=== PATIENT | male | born 1980 | race Caucasian/White ===

== ENCOUNTER 2017-07-10 21:44 | Emergency (ER) | payer OTHER ==
[2017-07-10 22:15] VITALS: BP 143/89
--- NOTE | 2017-07-10 22:53 | RADIOLOGY REPORT (SQ) ---
EXAM DESCRIPTION: SHOULDER RIGHT 2 OR MORE VIEWS COMPLETED DATE/TIME: 07/10/2017 10:45 pm REASON FOR STUDY: pain, decreased ROM COMPARISON: None. NUMBER OF VIEWS: Three views. TECHNIQUE: Internal rotation, external rotation, and Y view images acquired of the right shoulder. LIMITATIONS: None. FINDINGS: MINERALIZATION: Normal. BONES: No acute fracture or dislocation. No worrisome bone lesions. JOINTS: No dislocation. VISUALIZED LUNGS AND RIBS: No pneumothorax. No rib fracture. SOFT TISSUES: No radiopaque foreign body. OTHER: No other significant finding. IMPRESSION: NEGATIVE STUDY OF THE RIGHT SHOULDER. NO RADIOGRAPHIC EVIDENCE OF ACUTE INJURY. TECHNICAL DOCUMENTATION: JOB ID: [id number] [employer]- All Rights Reserved
[2017-07-10] MEDS ORDERED: NAPROXEN 250 MG TABLET PO ONE (23:00)
--- NOTE | 2017-07-10 23:04 | ER Document Report ---
ED Extremity Problem, Upper - General Chief Complaint: Shoulder Injury Stated Complaint: SHOULDER PAIN Time Seen by Provider: 07/10/17 22:51 Notes: Patient is a 36-year-old male who comes emergency department for chief complaint of right shoulder injury. He states he was getting up out of a chair and pushing himself out when he felt a pain in his right shoulder. He states he is worried he dislocated it. He denies numbness to the arm, neck pain, or any other areas of pain. He denies any other injuries. TRAVEL OUTSIDE OF THE [place] IN LAST 30 DAYS: No - Related Data Allergies/Adverse Reactions: No Known Allergies Allergy (Verified 07/10/17 22:10) Past Medical History - General Information source: Patient - Social History Smoking Status: Never Smoker Drug Abuse: None Lives with: Family Family History: Reviewed & Not Pertinent - Past Medical History Cardiac Medical History: Reports: Hx Hypercholesterolemia, Hx Hypertension Pulmonary Medical History: Reports: Hx Asthma Renal/ Medical History: Denies: Hx Peritoneal Dialysis GI Medical History: Reports: Hx Gastroesophageal Reflux Disease Musculoskeltal Medical History: Reports Hx Arthritis Psychiatric Medical History: Reports: Hx Anxiety - Immunizations Hx Diphtheria, Pertussis, Tetanus Vaccination: No Review of Systems - Review of Systems Constitutional: No symptoms reported EENT: No symptoms reported Cardiovascular: No symptoms reported Respiratory: No symptoms reported Gastrointestinal: No symptoms reported Genitourinary: No symptoms reported Male Genitourinary: No symptoms reported Musculoskeletal: See HPI Skin: No symptoms reported Hematologic/Lymphatic: No symptoms reported Neurological/Psychological: No symptoms reported Physical Exam - Vital signs Vitals: Temp Pulse Resp BP Pulse Ox 97.8 F 90 20 143/89 H 98 07/10/17 22:10 07/10/17 22:10 07/10/17 22:10 07/10/17 22:10 07/10/17 22:10 Interpretation: Normal - General General appearance: Appears well, Alert In distress: None - HEENT Head: Normocephalic, Atraumatic Eyes: Normal Conjunctiva: Normal Extraocular movements intact: Yes Eyelashes: Normal Pupils: PERRL Nasal: Normal Mouth/Lips: Normal Mucous membranes: Normal Pharynx: Normal Neck: Normal - Respiratory Respiratory status: No respiratory distress Chest status: Nontender Breath sounds: Normal Chest palpation: Normal - Cardiovascular Rhythm: Regular. No: Tachycardia Heart sounds: Normal auscultation, S1 appreciated, S2 appreciated Murmur: No - Abdominal Inspection: Normal Distension: No distension Bowel sounds: Normal Tenderness: Nontender. No: Tender Organomegaly: No organomegaly - Back Back: Normal, Nontender - Extremities General upper extremity: Other - Positive empty can test, tenderness over the teres minor and internal posterior shoulder. No evidence of dislocation. Painful range of motion but range of motion is still intact. Normal distal neurovascular exam. General lower extremity: Normal inspection, Nontender, Normal color, Normal ROM , Normal temperature, Normal weight bearing. No: Radha's sign - Neurological Neuro grossly intact: Yes Cognition: Normal Orientation: AAOx4 [place] Coma Scale Eye Opening: Spontaneous Vic Coma Scale Verbal: Oriented [place] Coma Scale Motor: Obeys Commands Vic Coma Scale Total: 15 Speech: Normal Motor strength normal: LUE, RUE, LLE, RLE Sensory: Normal - Psychological Associated symptoms: Normal affect, Normal mood - Skin Skin Temperature: Warm Skin Moisture: Dry Skin Color: Normal Course - Re-evaluation Re-evalutation: X-ray reviewed and is unremarkable. Examination is consistent with rotator cuff injury. Patient will begin treatment for this, discussed recommendation, he already has a sling at home, discussed orthopedic follow-up if symptoms continue, discussed return precautions, patient states understanding and agreement. - Vital Signs Vital signs: Temp Pulse Resp BP Pulse Ox 97.8 F 90 20 143/89 H 98 07/10/17 22:10 07/10/17 22:10 07/10/17 22:10 07/10/17 22:10 07/10/17 22:10 Discharge - Discharge Clinical Impression: Right shoulder injury Qualifiers: Encounter type: initial encounter Qualified Code(s): S49.91XA - Unspecified injury of right shoulder and upper arm, initial encounter Condition: Stable Disposition: HOME, SELF-CARE Additional Instructions: X-ray imaging is normal. Your examination indicates rotator cuff injury. Ice 3-4 times a day for 15-20 minutes, take naproxen as prescribed, take the valium as a muscle relaxer (can sedate, cannot drive on this medication). Wear your sling for comfort at home but also remember to take your arm out frequently to perform range of motion to avoid a frozen shoulder. If symptoms continue please follow-up with orthopedics for additional management. Return to emergency department for any concerning or worsening symptoms. Prescriptions: Diazepam [Valium 5 mg Tablet] 1 - 2 tab PO TID #15 tablet Naproxen 500 mg PO BID #20 tablet Referrals: ZIYAD SANCHEZ DO [ACTIVE STAFF] - Follow up as needed
== END 2017-07-10 23:10 | disposition home or self-care (01) ==
LOC: ER 21:44
DX: S49.91XA Unspecified injury of right shoulder and upper arm, initial encounter (principal); X58.XXXA Exposure to other specified factors, initial encounter; I10 Essential (primary) hypertension; J45.909 Unspecified asthma, uncomplicated
CPT/HCPCS: 99283

== ENCOUNTER 2017-11-19 09:22 | Emergency (ER) | payer OTHER ==
[2017-11-19] MEDS ORDERED: ONDANSETRON HCL INJ/PF 4 MG/2 ML SDV IV ONE (10:17)
[2017-11-19] MEDS ORDERED: KETOROLAC TROMETHAMINE INJ/PF 30 MG/1 ML SDV IV ONE (10:17)
--- NOTE | 2017-11-19 10:31 | ER Document Report ---
ED Respiratory Problem - General Chief Complaint: Chest Congestion Stated Complaint: COUGH/CONGESTION Time Seen by Provider: 11/19/17 09:41 Mode of Arrival: Ambulatory Information source: Patient Notes: 36-year-old male presents to ED for cough congestion's sore throat nausea vomiting and fever. He states he got sick on Sunday and has been getting worse since then. He states he is coughing so hard he is keeping him awake. TRAVEL OUTSIDE OF THE [place] IN LAST 30 DAYS: No - HPI Patient complains to provider of: Cough, Short of breath, Other - Fever nausea and vomiting Onset: Other - Sunday Duration: Worse/persistent Initiating Event: URI Quality of pain: Achy Severity: Moderate Pain Level: 4 Short of Breath: Mild Cough: Productive Sputum amount: Moderate Sputum color: White Associated symptoms: Chills, Congestion, Cough, Fever, PND, Runny nose, Sinus pain/pressure, Other - Nausea and vomiting Similar symptoms previously: No Recently seen / treated by doctor: No - Related Data Allergies/Adverse Reactions: No Known Allergies Allergy (Verified 11/19/17 13:00) Past Medical History - General Information source: Patient - Social History Smoking Status: Never Smoker Cigarette use (# per day): No Chew tobacco use (# tins/day): No Smoking Education Provided: No Frequency of alcohol use: Occasional Drug Abuse: None Occupation: clinical rehab specialist Lives with: Family Family History: Reviewed & Not Pertinent Patient has suicidal ideation: No Patient has homicidal ideation: No - Past Medical History Cardiac Medical History: Reports: Hx Hypercholesterolemia, Hx Hypertension Pulmonary Medical History: Reports: Hx Asthma, Hx Pneumonia EENT Medical History: Reports: None Neurological Medical History: Reports: None Endocrine Medical History: Reports: None Renal/ Medical History: Reports: None Malignancy Medical History: Reports None GI Medical History: Reports: Hx Gastroesophageal Reflux Disease Musculoskeltal Medical History: Reports Hx Arthritis Psychiatric Medical History: Reports: Hx Anxiety, Hx Depression Traumatic Medical History: Reports: None Infectious Medical History: Reports: None Surgical Hx: Negative Past Surgical History: Reports: None - Immunizations Hx Diphtheria, Pertussis, Tetanus Vaccination: No History of Influenza Vaccine for 08/2017 - 01/2018 Season: Yes Review of Systems - Review of Systems Constitutional: Chills, Fever, Recent illness EENT: Nose discharge, Sinus discharge, Throat pain Cardiovascular: No symptoms reported Respiratory: Cough, Short of breath, Sputum Gastrointestinal: Nausea, Vomiting Genitourinary: No symptoms reported Male Genitourinary: No symptoms reported Musculoskeletal: Muscle pain Skin: No symptoms reported Hematologic/Lymphatic: No symptoms reported Neurological/Psychological: No symptoms reported -: Yes All other systems reviewed and negative Physical Exam - Vital signs Vitals: Temp Pulse Resp BP Pulse Ox 101.0 F H 131 H 22 H 139/83 H 96 11/19/17 09:26 11/19/17 09:26 11/19/17 09:26 11/19/17 09:26 11/19/17 09:26 Interpretation: Normal - General General appearance: Appears well, Alert - HEENT Head: Normocephalic, Atraumatic Eyes: Normal Pupils: PERRL Ears: Normal External canal: Normal Tympanic membrane: Normal Sinus: Normal Nasal: Purulent discharge, Swelling Mouth/Lips: Normal Mucous membranes: Normal Pharynx: Post nasal drainage. No: Erythema, Exudate, Peritonsillar abscess, Retropharyngeal abscess, Tonsillar hypertrophy, Uvular edema, Potential airway comprom. Neck: Normal - Respiratory Respiratory status: No respiratory distress Chest status: Nontender Breath sounds: Productive cough. No: Rales, Rhonchi, Stridor, Wheezing Chest palpation: Normal - Cardiovascular Rhythm: Regular Heart sounds: Normal auscultation Murmur: No - Abdominal Inspection: Normal Distension: No distension Bowel sounds: Normal Tenderness: Nontender Organomegaly: No organomegaly - Back Back: Normal, Nontender - Extremities General upper extremity: Normal inspection, Nontender, Normal color, Normal ROM , Normal temperature General lower extremity: Normal inspection, Nontender, Normal color, Normal ROM , Normal temperature, Normal weight bearing. No: Radha's sign - Neurological Neuro grossly intact: Yes Cognition: Normal Orientation: AAOx4 [place] Coma Scale Eye Opening: Spontaneous [place] Coma Scale Verbal: Oriented [place] Coma Scale Motor: Obeys Commands Vic Coma Scale Total: 15 Speech: Normal Motor strength normal: LUE, RUE, LLE, RLE Sensory: Normal - Psychological Associated symptoms: Normal affect, Normal mood - Skin Skin Temperature: Warm Skin Moisture: Dry Skin Color: Normal Course - Re-evaluation Re-evalutation: 11/19/17 22:28 Patient was given 2 L of fluids was Toradol and Zofran. After his labs were all completed patient stated he felt much better. He was discharged home with prescription for Zofran and instructed to please takes the next 3 days off and recuperate. With his primary doctor - Vital Signs Vital signs: Temp Pulse Resp BP Pulse Ox 98.1 F 113 H 22 H 127/72 H 95 11/19/17 12:41 11/19/17 12:41 11/19/17 12:41 11/19/17 12:41 11/19/17 12:41 - Laboratory Result Diagrams: 11/19/17 10:40 11/19/17 10:40 Laboratory results interpreted by me: 11/19/17 11/19/17 11/19/17 10:40 10:40 10:40 Seg Neutrophils % 80.2 H Lymphocytes % 8.9 L VBG pH 7.43 H Glucose 139 H Total Bilirubin 1.5 H Urine Protein Urine Blood 11/19/17 10:40 Seg Neutrophils % Lymphocytes % VBG pH Glucose Total Bilirubin Urine Protein 30 H Urine Blood SMALL H - Diagnostic Test Radiology reviewed: Image reviewed, Reports reviewed - EKG Interpretation by Me When compared to previous EKG there are: No significant change Discharge - Discharge Clinical Impression: Viral respiratory illness Nausea and vomiting Qualifiers: Vomiting type: unspecified Vomiting Intractability: non-intractable Qualified Code(s): R11.2 - Nausea with vomiting, unspecified Condition: Stable Disposition: HOME, SELF-CARE Instructions: Family Physicians / Practices Additional Instructions: UPPER RESPIRATORY ILLNESS: You have a viral infection of the respiratory passages -- a "cold." This common infection causes nasal congestion, drainage, and often sore throat and cough. It is highly contagious. The disease usually lasts about 10 to 14 days. There is no "cure" for the viral infection -- it must run its course. If there is a complication, such as bacterial infection in the nose, sinuses, middle ear, or bronchial tubes, antibiotics may be required. The antibiotics won't affect the virus. Drink plenty of fluids. A humidifier may help. An expectorant medication or decongestant may make you more comfortable. Use acetaminophen or ibuprofen for fever or aches. See the doctor if fever persists over two days, if there is any significant worsening of your symptoms, or if you simply fail to improve as expected. Viral Syndrome The physician has diagnosed a viral infection. Viruses not only cause "colds," but can cause many different symptoms including generalized aching, fever, headache, cough, diarrhea, nausea, vomiting, and fatigue. The treatment, for the most part, is simply relief of symptoms. This means that antibiotics are usually not given. Rest, fluids, pain medications and, occasionally, medication for the specific symptoms that are most bothersome will be prescribed. Use good handwashing to avoid passing the virus to others. Shared toys should be cleaned with disinfectant. Clean the toilets, sinks, and counter surfaces in bathrooms. Launder clothing in hot water. Contact the physician if you develop any new or unusual symptoms such as severe headache, stiff neck, high fever, chest pain, productive cough, or shortness of breath. You should be rechecked if you don't see marked improvement within seven to 10 days. COUGH-SUPPRESSANT & EXPECTORANT MEDICATION: You are to use a cough medication as needed for relief of symptoms. This medicine is a combination of an expectorant (to make the mucous thinner and more easily "coughed up") and a cough suppressant (to reduce the frequency of coughing). The cough-suppressant medicine is related to narcotics. You may experience mild nausea and sleepiness. Some patients who are very sensitive to narcotics may have stomach pain from this medicine. Taking the medicine with food reduces these side effects. Do not drive or work with machinery until you know how this medicine affects you. The expectorant should have no side effects. Iodine-containing expectorants (such as organidin) should not be taken by persons with active thyroid disease unless approved by your doctor. Call the doctor if you develop shortness of breath, hives, rash, itching, lightheadedness, or severe nausea and vomiting. USE OF ACETAMINOPHEN (Tylenol): Acetaminophen may be taken for pain relief or fever control. It's much safer than aspirin, offering a wider range of "safe" dosages. It is safe during . Some brand names are Tylenol, Panadol, Datril, Anacin 3, Tempra, and Liquiprin. Acetaminophen can be repeated every four hours. The following are maximum recommended dosages: >89 pounds or adults 650 mg to 900 mg Acetaminophen can be repeated every four hours. Maximum dose not to exceed 4000 mg a day. FOLLOW-UP CARE: If you have been referred to a physician for follow-up care, call the physician s office for an appointment as you were instructed or within the next two days. If you experience worsening or a significant change in your symptoms, notify the physician immediately or return to the Emergency Department at any time for re-evaluation. Prescriptions: Ondansetron [Zofran Odt 4 mg Tablet] 1 tab PO Q6H #15 tab.rapdis Forms: Return to Work
[2017-11-19] MEDS: NORMAL SALINE 1000 ML 1,000 ML IV PRN ×2 (10:45→10:47)
[2017-11-19 11:04] LABS: ABSOLUTE BASOPHILS # (AUTO) 0.1 10^3/uL (0.0-0.2); ABSOLUTE LYMPHOCYTES (AUTO) 0.7 10^3/uL (0.5-4.7); ABSOLUTE MONOCYTES (AUTO) 0.7 10^3/uL (0.1-1.4); ABSOLUTE NEUT (AUTO) 6.2 10^3/uL (1.7-8.2); BASOPHILS % (AUTO) 0.7 % (0-2); EOSINOPHILS % (AUTO) 0.6 % (0-6); HEMATOCRIT 45.2 % (37.9-51.0); HEMOGLOBIN 15.9 g/dL (13.5-17.0); LYMPHOCYTES % (AUTO) 8.9 % (13-45); MEAN CORPUSCULAR HEMOGLOBIN 30.2 pg (27.0-33.4); MEAN CORPUSCULAR HGB CONC 35.1 g/dL (32.0-36.0); MEAN CORPUSCULAR VOLUME 86 fl (80-97); MONOCYTES % (AUTO) 9.6 % (3-13); PLATELET COUNT 190 10^3/uL (150-450); RED BLOOD COUNT 5.25 10^6/uL (4.35-5.55); RED CELL DISTRIBUTION WIDTH 12.8 % (11.5-14.0); SEGMENTED NEUTROPHILS % (AUTO) 80.2 % (42-78); TOTAL CELLS COUNTED % (AUTO) 100 %; WHITE BLOOD COUNT 7.7 10^3/uL (4.0-10.5)
[2017-11-19 11:05] LABS: VENOUS BLOOD BASE EXCESS 1.4 mmol/L; VENOUS BLOOD HCO3 25.8 mmol/L (20-32); VENOUS BLOOD PCO2 39.9 mmHg (35-63); VENOUS BLOOD PH 7.43 (7.30-7.42)
--- NOTE | 2017-11-19 11:10 | RADIOLOGY REPORT (SQ) ---
EXAM DESCRIPTION: CHEST PA/LAT COMPLETED DATE/TIME: 11/19/2017 10:52 am REASON FOR STUDY: cough congestion fever COMPARISON: 09/14/2016 EXAM PARAMETERS: NUMBER OF VIEWS: two views TECHNIQUE: Digital Frontal and Lateral radiographic views of the chest acquired. RADIATION DOSE: NA LIMITATIONS: none FINDINGS: LUNGS AND PLEURA: No new opacities, masses or pneumothorax. No pleural effusion. MEDIASTINUM AND HILAR STRUCTURES: No masses or contour abnormalities. HEART AND VASCULAR STRUCTURES: Heart stable in size. No evidence for failure. BONES: No acute findings. HARDWARE: None in the chest. OTHER: No other significant finding. IMPRESSION: NO ACUTE CARDIOPULMONARY PROCESS. NO SIGNIFICANT CHANGE FROM PRIOR STUDY. TECHNICAL DOCUMENTATION: JOB ID: [id number] [employer]- All Rights Reserved
[2017-11-19 11:18] LABS: APPEARANCE,URINE CLEAR; BILIRUBIN,URINE NEGATIVE (NEGATIVE); COLOR,URINE YELLOW; GLUCOSE, URINE NEGATIVE (NEGATIVE); KETONES,URINE NEGATIVE (NEGATIVE); LEUKOCYTE ESTERASE,URINE NEGATIVE (NEGATIVE); NITRITE,URINE NEGATIVE (NEGATIVE); PROTEIN,URINE 30 mg/dL (NEGATIVE); URINE SPECIFIC GRAVITY 1.018; UROBILINOGEN,URINE NEGATIVE mg/dL (<2.0)
[2017-11-19 11:19] LABS: ALANINE AMINOTRANSFERASE 55 U/L (21-72); ALBUMIN 4.4 g/dL (3.5-5.0); ALKALINE PHOSPHATASE 60 U/L (38-126); ANION GAP 12 (5-19); ASPARTATE AMINO TRANSFERASE 35 U/L (17-59); BILIRUBIN,DIRECT 0.4 mg/dL (0.0-0.4); BILIRUBIN,TOTAL 1.5 mg/dL (0.2-1.3); BLOOD UREA NITROGEN 12 mg/dL (7-20); CALCIUM 9.2 mg/dL (8.4-10.2); CARBON DIOXIDE 26 mmol/L (22-30); CHLORIDE 99 mmol/L (98-107); GLUCOSE 139 mg/dL (75-110); POTASSIUM 4.2 mmol/L (3.6-5.0); SODIUM 137.4 mmol/L (137-145); TOTAL PROTEIN 7.2 g/dL (6.3-8.2)
[2017-11-19 11:44] LABS: A TYPE INFLUENZA AG NEGATIVE (NEGATIVE); B INFLUENZA AG NEGATIVE (NEGATIVE)
[2017-11-19 12:42] VITALS: BP 127/72
--- NOTE | 2017-11-20 09:31 | EKG REPORT ---
SEVERITY:- BORDERLINE ECG - SINUS TACHYCARDIA BORDERLINE T ABNORMALITIES, INFERIOR LEADS : Confirmed by: Adarsh Fernandez 20-Nov-2017 09:30:13
== END 2017-11-19 13:14 | disposition home or self-care (01) ==
LOC: ER 09:22
DX: J02.8 Acute pharyngitis due to other specified organisms (principal); B97.89 Other viral agents as the cause of diseases classified elsewhere; J45.909 Unspecified asthma, uncomplicated; R11.2 Nausea with vomiting, unspecified; R05 Cough; R06.02 Shortness of breath; R50.9 Fever, unspecified; R09.82 Postnasal drip; J34.89 Other specified disorders of nose and nasal sinuses; M79.1 Myalgia; I10 Essential (primary) hypertension; Z87.01 Personal history of pneumonia (recurrent); Z87.19 Personal history of other diseases of the digestive system
CPT/HCPCS: 93005; 99284; 96361; 96374; 96375; 36415; 87040; 85025; 80053; 81001; 82803; 83605; 87804; 71046; 93010; J1885; J2405; J7030

== ENCOUNTER 2017-12-27 02:43 | Emergency (ER) | payer OTHER ==
--- NOTE | 2017-12-27 04:56 | RADIOLOGY REPORT (SQ) ---
EXAM DESCRIPTION: FOOT LEFT COMPLETE CLINICAL HISTORY: swelling COMPARISON: None. FINDINGS: 3 views of the left foot. No acute fracture or dislocation. Normal osseous mineralization. The tarsals and metatarsals appear appropriately aligned. Hallux valgus deformity. IMPRESSION: No acute fracture or dislocation.
--- NOTE | 2017-12-27 08:11 | ER Document Report ---
ED General - General Chief Complaint: Foot Pain Stated Complaint: FOOT PAIN AND SWELLING Time Seen by Provider: 12/27/17 07:27 TRAVEL OUTSIDE OF THE [place] IN LAST 30 DAYS: No - HPI Patient complains to provider of: Left foot pain swelling Notes: Patient coming in for acute onset of left foot pain states patient states started about 2 days ago. Patient has swelling now underneath the lateral malleolus. Patient denies any injury. Patient resting currently upon my evaluation. Pain with range of motion however patient is able to ablate walk on his foot - Related Data Allergies/Adverse Reactions: No Known Allergies Allergy (Verified 11/19/17 13:00) Past Medical History - Social History Smoking Status: Former Smoker Chew tobacco use (# tins/day): No Frequency of alcohol use: Occasional Drug Abuse: None Family History: Reviewed & Not Pertinent Patient has suicidal ideation: No Patient has homicidal ideation: No - Past Medical History Cardiac Medical History: Reports: Hx Hypercholesterolemia, Hx Hypertension Pulmonary Medical History: Reports: Hx Asthma, Hx Pneumonia Renal/ Medical History: Denies: Hx Peritoneal Dialysis GI Medical History: Reports: Hx Gastroesophageal Reflux Disease Musculoskeltal Medical History: Reports Hx Arthritis Psychiatric Medical History: Reports: Hx Anxiety, Hx Depression - Immunizations Hx Diphtheria, Pertussis, Tetanus Vaccination: No Review of Systems - Review of Systems Constitutional: No symptoms reported EENT: No symptoms reported Cardiovascular: No symptoms reported Respiratory: No symptoms reported Gastrointestinal: No symptoms reported Genitourinary: No symptoms reported Male Genitourinary: No symptoms reported Musculoskeletal: Other - Left ankle pain Skin: No symptoms reported Hematologic/Lymphatic: No symptoms reported Neurological/Psychological: No symptoms reported -: Yes All other systems reviewed and negative Physical Exam - Vital signs Vitals: Temp Pulse Resp BP Pulse Ox 97.4 F 87 20 143/88 H 96 12/27/17 02:46 12/27/17 02:46 12/27/17 02:46 12/27/17 02:46 12/27/17 02:46 Interpretation: Normal - General General appearance: Appears well, Alert - HEENT Head: Normocephalic, Atraumatic Eyes: Normal Pupils: PERRL - Respiratory Respiratory status: No respiratory distress Chest status: Nontender Breath sounds: Normal Chest palpation: Normal - Cardiovascular Rhythm: Regular Heart sounds: Normal auscultation Murmur: No - Abdominal Inspection: Normal Distension: No distension Bowel sounds: Normal Tenderness: Nontender Organomegaly: No organomegaly - Back Back: Normal, Nontender - Extremities General upper extremity: Normal inspection, Nontender, Normal color, Normal ROM , Normal temperature General lower extremity: Nontender, Normal color, Normal ROM, Normal temperature , Normal weight bearing. No: Normal inspection - Mild swelling to the lateral malleolus of the left ankle and bruising consistent with a ankle sprain, Radha' s sign - Neurological Neuro grossly intact: Yes Cognition: Normal Orientation: AAOx4 [place] Coma Scale Eye Opening: Spontaneous [place] Coma Scale Verbal: Oriented Vic Coma Scale Motor: Obeys Commands Vic Coma Scale Total: 15 Speech: Normal Motor strength normal: LUE, RUE, LLE, RLE Sensory: Normal - Psychological Associated symptoms: Normal affect, Normal mood - Skin Skin Temperature: Warm Skin Moisture: Dry Skin Color: Normal Course - Re-evaluation Re-evalutation: 12/27/17 15:09 X-rays negative patient was to have an ankle sprain. Patient will be given pain medication for home encouraged follow-up with primary care physician and wear supportive shoes. - Vital Signs Vital signs: Temp Pulse Resp BP Pulse Ox 97.8 F 93 20 128/83 H 95 12/27/17 08:53 12/27/17 08:53 12/27/17 05:15 12/27/17 08:53 12/27/17 08:53 Discharge - Discharge Clinical Impression: Left ankle sprain Qualifiers: Encounter type: initial encounter Involved ligament of ankle: unspecified ligament Qualified Code(s): S93.402A - Sprain of unspecified ligament of left ankle, initial encounter Condition: Good Disposition: HOME, SELF-CARE Instructions: Ice Packs ([facility]), Oral Narcotic Medication ([facility]), Sprained Ankle ( [facility]) Additional Instructions: Your x-ray today is consistent with an ankle sprain. There is no signs of fracture. Examination also consistent with an ankle sprain. Please take Tylenol Motrin for pain he may take Ultram for severe pain. Elevate ice your ankle would also recommend wearing a good set of supportive shoes. Return to the ER symptoms worsen. Prescriptions: Tramadol HCl [Ultram 50 mg Tablet] 50 mg PO ASDIR PRN #20 tablet PRN Reason: Forms: Return to Work
[2017-12-27 08:54] VITALS: BP 128/83
== END 2017-12-27 08:54 | disposition home or self-care (01) ==
LOC: ER 02:43
DX: S93.402A Sprain of unspecified ligament of left ankle, initial encounter (principal); X58.XXXA Exposure to other specified factors, initial encounter; M79.672 Pain in left foot; M25.572 Pain in left ankle and joints of left foot; I10 Essential (primary) hypertension; J45.909 Unspecified asthma, uncomplicated; Z87.891 Personal history of nicotine dependence
CPT/HCPCS: 99283

== ENCOUNTER 2018-07-17 20:56 | Emergency (ER) | payer BC, OTHER ==
[2018-07-17] MEDS ORDERED: ACETAMINOPHEN 325 MG TABLET PO ONE (21:18)
[2018-07-17] MEDS ORDERED: NORMAL SALINE 1000 ML 1,000 ML IV ONE (21:42)
--- NOTE | 2018-07-17 21:43 | ER Document Report ---
ED General - General Chief Complaint: Nausea/Vomiting Stated Complaint: NAUSEA,HEADACHE Time Seen by Provider: 07/17/18 21:41 Mode of Arrival: Ambulatory Information source: Patient Notes: This is a 37-year-old man that presents to the emergency room with an episode of headache, nausea and vomiting. He does have a remote history of migraines, seasonal allergies, GERD, hypertension. 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 He was driving back from the hospital when his symptoms began acutely. He was given Tylenol and Zofran on the trip over and states he does feel much better. Currently he states he only has a mild headache. His nausea is resolved. TRAVEL OUTSIDE OF THE [place] IN LAST 30 DAYS: No - HPI Onset: Just prior to arrival Onset/Duration: Sudden Quality of pain: Dull Severity: Moderate Pain Level: 2 Associated symptoms: Headache, Nausea, Vomiting. denies: Chills, Diarrhea, Fever Exacerbated by: Denies Relieved by: Denies Similar symptoms previously: No Recently seen / treated by doctor: No - Related Data Allergies/Adverse Reactions: No Known Allergies Allergy (Verified 07/17/18 21:33) Past Medical History - General Information source: Patient - Social History Smoking Status: Never Smoker Cigarette use (# per day): No Chew tobacco use (# tins/day): No Frequency of alcohol use: Occasional Drug Abuse: None Lives with: Family Family History: Reviewed & Not Pertinent Patient has suicidal ideation: No Patient has homicidal ideation: No - Past Medical History Cardiac Medical History: Reports: Hx Hypercholesterolemia, Hx Hypertension Pulmonary Medical History: Reports: Hx Asthma, Hx Pneumonia Renal/ Medical History: Denies: Hx Peritoneal Dialysis GI Medical History: Reports: Hx Gastroesophageal Reflux Disease Musculoskeletal Medical History: Reports Hx Arthritis Psychiatric Medical History: Reports: Hx Anxiety, Hx Depression - Immunizations Hx Diphtheria, Pertussis, Tetanus Vaccination: No Review of Systems - Review of Systems Constitutional: denies: Chills, Fever EENT: No symptoms reported Cardiovascular: denies: Chest pain, Palpitations, Heart racing Respiratory: denies: Cough, Short of breath Gastrointestinal: denies: Abdomen distended, Abdominal pain, Diarrhea, Nausea, Vomiting Genitourinary: No symptoms reported Male Genitourinary: No symptoms reported Musculoskeletal: No symptoms reported Skin: No symptoms reported Hematologic/Lymphatic: No symptoms reported Neurological/Psychological: Headaches Physical Exam - Vital signs Vitals: Resp Pulse Ox 21 H 94 07/17/18 21:07 07/17/18 21:07 Notes: Physical exam: GENERAL: 37-year-old man, alert and oriented 3, no acute distress HEAD: Atraumatic, normocephalic. EYES: Pupils equal round and reactive to light, extraocular movements intact, sclera anicteric, conjunctiva are normal. ENT: TMs normal, nares patent, oropharynx clear without exudates. Moist mucous membranes. NECK: Normal range of motion, supple without obvious mass or JVD. LUNGS: Breath sounds clear to auscultation bilaterally and equal. No wheezes rales or rhonchi. HEART: Regular rate and rhythm without murmurs, rubs or gallops. ABDOMEN: Soft, normoactive bowel sounds. No tenderness to palpation. No guarding, no rebound. No masses appreciated. EXTREMITIES: Normal range of motion, no pitting or edema. No clubbing or cyanosis. NEUROLOGICAL: Cranial nerves II through XII grossly intact. Normal speech, moving all extremities. PSYCH: Normal mood, normal affect. SKIN: Warm, Dry, normal turgor, no rashes or lesions noted. Course - Vital Signs Vital signs: Temp Pulse Resp BP Pulse Ox 97.9 F 16 107/76 96 07/18/18 02:50 07/18/18 02:01 07/18/18 02:01 07/18/18 02:01 - Laboratory Result Diagrams: 07/17/18 21:12 07/17/18 21:12 Laboratory results interpreted by me: 07/17/18 07/17/18 21:12 21:12 [facility] 36.2 H Glucose 182 H - EKG Interpretation by Ga Rate: Normal, Bradycardia Rhythm: NSR - EKG shows normal sinus rhythm with a ventricular rate of 98, no acute ST-T wave changes Discharge - Discharge Clinical Impression: Headache, Vomiting with nausea Condition: Stable Disposition: HOME, SELF-CARE Additional Instructions: Recommendations: Rest, drink plenty of fluids. I did write a prescription for Zofran: You can fill it if you start getting nauseated. Can take Tylenol or Advil for pain. Return to the emergency room for worsening headache, worsening nausea, not tolerating fluids or any concerns or getting worse. Follow-up with your doctor in the next few days. Prescriptions: Ondansetron HCl [Zofran 4 mg Tablet] 1 - 2 tab PO Q4H PRN #10 tablet PRN Reason: Forms: Return to Work
[2018-07-17 21:50] LABS: ABSOLUTE BASOPHILS # (AUTO) 0.1 10^3/uL (0.0-0.2); ABSOLUTE EOSINOPHILS # (AUTO) 0.2 10^3/uL (0.0-0.6); ABSOLUTE LYMPHOCYTES (AUTO) 1.7 10^3/uL (0.5-4.7); ABSOLUTE MONOCYTES (AUTO) 0.5 10^3/uL (0.1-1.4); ABSOLUTE NEUT (AUTO) 5.9 10^3/uL (1.7-8.2); BASOPHILS % (AUTO) 1.2 % (0-2); EOSINOPHILS % (AUTO) 1.8 % (0-6); HEMATOCRIT 44.4 % (37.9-51.0); HEMOGLOBIN 16.1 g/dL (13.5-17.0); LYMPHOCYTES % (AUTO) 20.7 % (13-45); MEAN CORPUSCULAR HEMOGLOBIN 31.2 pg (27.0-33.4); MEAN CORPUSCULAR HGB CONC 36.2 g/dL (32.0-36.0); MEAN CORPUSCULAR VOLUME 86 fl (80-97); MONOCYTES % (AUTO) 5.8 % (3-13); PLATELET COUNT 267 10^3/uL (150-450); RED BLOOD COUNT 5.16 10^6/uL (4.35-5.55); RED CELL DISTRIBUTION WIDTH 13.2 % (11.5-14.0); SEGMENTED NEUTROPHILS % (AUTO) 70.5 % (42-78); TOTAL CELLS COUNTED % (AUTO) 100 %; WHITE BLOOD COUNT 8.3 10^3/uL (4.0-10.5)
[2018-07-17 21:54] LABS: ALANINE AMINOTRANSFERASE 49 U/L (21-72); ALBUMIN 4.4 g/dL (3.5-5.0); ALKALINE PHOSPHATASE 63 U/L (38-126); ANION GAP 13 (5-19); ASPARTATE AMINO TRANSFERASE 39 U/L (17-59); BILIRUBIN,DIRECT 0.4 mg/dL (0.0-0.4); BILIRUBIN,TOTAL 1.3 mg/dL (0.2-1.3); BLOOD UREA NITROGEN 15 mg/dL (7-20); CALCIUM 9.4 mg/dL (8.4-10.2); CARBON DIOXIDE 26 mmol/L (22-30); CHLORIDE 101 mmol/L (98-107); GLUCOSE 182 mg/dL (75-110); POTASSIUM 3.7 mmol/L (3.6-5.0); TOTAL PROTEIN 7.7 g/dL (6.3-8.2)
[2018-07-17] MEDS ORDERED: KETOROLAC TROMETHAMINE INJ/PF 30 MG/1 ML SDV IV ONE (23:49)
[2018-07-18 02:51] VITALS: BP 107/76
--- NOTE | 2018-07-18 07:49 | EKG REPORT ---
SEVERITY:- NORMAL ECG - SINUS RHYTHM : Confirmed by: Juan Mata MD 18-Jul-2018 07:48:27
== END 2018-07-18 02:58 | disposition home or self-care (01) ==
LOC: ER 20:56
DX: R11.2 Nausea with vomiting, unspecified (principal); R51 Headache; E78.00 Pure hypercholesterolemia, unspecified; I10 Essential (primary) hypertension
CPT/HCPCS: 93005; 99284; 96361; 96374; 36415; 85025; 80053; 93010; J1885; J7030

== ENCOUNTER 2019-01-11 23:02 | Emergency (ER) | payer BC ==
[2019-01-11 23:11] VITALS: BP 136/89
[2019-01-11] MEDS ORDERED: CEPHALEXIN 500 MG CAPSULE PO ONE (23:47)
--- NOTE | 2019-01-11 23:50 | ER Document Report ---
HPI - HPI Patient complains to provider of: left finger pain Time Seen by Provider: 01/11/19 23:34 Pain Level: 4 Context: Patient is a 38-year-old male that comes to the emergency department for chief complaint of pain to his left index finger. He states he trimmed his nails too short, afterwards the area became red and inflamed, he states it was improving but he keeps bumping it on everything and it continues to hurt and be red and inflamed. He recently had a paronychia on the left thumb as well but this popped and drained pus, afterwards this resolved. When it popped and was draining he was placed on Bactrim, he is completing this now. Denies history of diabetes, he denies any other complaints. Past Medical History - General Information source: Patient - Social History Smoking Status: Never Smoker Drug Abuse: None Lives with: Family Family History: Reviewed & Not Pertinent - Past Medical History Cardiac Medical History: Reports: Hx Hypercholesterolemia, Hx Hypertension Pulmonary Medical History: Reports: Hx Asthma, Hx Pneumonia Renal/ Medical History: Denies: Hx Peritoneal Dialysis GI Medical History: Reports: Hx Gastroesophageal Reflux Disease Musculoskeletal Medical History: Reports Hx Arthritis Psychiatric Medical History: Reports: Hx Anxiety, Hx Depression - Immunizations Immunizations up to date: Yes Hx Diphtheria, Pertussis, Tetanus Vaccination: Yes Vertical Provider Document - CONSTITUTIONAL General Appearance: WD/WN, No Apparent Distress - INFECTION CONTROL TRAVEL OUTSIDE OF THE [place] IN LAST 30 DAYS: No - HEENT HEENT: Atraumatic, Normocephalic - NECK Neck: Normal Inspection - RESPIRATORY Respiratory: Breath Sounds Normal, No Respiratory Distress - CARDIOVASCULAR Cardiovascular: Regular Rate, Regular Rhythm - GI/ABDOMEN Gastrointestinal: Abdomen Soft, Abdomen Non-Tender - BACK Back: Normal Inspection - MUSCULOSKELETAL/EXTREMETIES Musculoskeletal/Extremeties: Tender - There is a very short fingernail at the left index finger with erythema at the tip of the nail at the nail bed and extending slightly forwards. No paronychia next to this, no tenderness over the finger pad, normal range of motion and strength at the DIP and PIP, normal capillary refill and sensation. Healing paronychia along the left thumb, otherwise unremarkable hand, arm exam. - NEURO Level of Consciousness: Awake, Alert, Appropriate - DERM Integumentary: Warm, Dry, No Rash Course - Re-evaluation Re-evalutation: Paronychia has healed. There is no tenderness along the side of the nail, no current paronychia over the left index finger, no evidence of felon. Normal range of motion. No soft tissue swelling. There is redness at the end of the index finger just at the location where the nail was cut too short. Discussed options with patient, this will most likely resolve on its own, after discussion however patient will be placed on Keflex, this is the preference. Discussed care, follow-up, and return precautions in detail with patient. Patient states understanding and agreement. - Vital Signs Vital signs: Temp Pulse Resp BP Pulse Ox 98 F 106 H 18 136/89 H 97 01/11/19 23:03 01/11/19 23:03 01/11/19 23:03 01/11/19 23:03 01/11/19 23:03 Discharge - Discharge Clinical Impression: Skin infection, Finger pain, left Condition: Stable Disposition: HOME, SELF-CARE Additional Instructions: The examination does not indicate an abscess in the finger or underlying pus that needs to be drained. For the skin infection I recommend that you take the Keflex antibiotic as pres cribed to completion. Use the finger protection to avoid hitting this repeatedly. Avoid cutting the nails so short in the future. Follow-up with primary care. Return if you worsen including spreading redness, developing swelling, fever, or any other concerning or worsening symptoms. Prescriptions: Cephalexin Monohydrate [Keflex 500 mg Capsule] 500 mg PO QID #28 capsule Forms: Return to Work
== END 2019-01-12 00:14 | disposition home or self-care (01) ==
LOC: ER 23:02
DX: L08.9 Local infection of the skin and subcutaneous tissue, unspecified (principal); M79.645 Pain in left finger(s); I10 Essential (primary) hypertension; J45.909 Unspecified asthma, uncomplicated
CPT/HCPCS: 99283

== ENCOUNTER 2019-08-13 21:00 | Emergency (ER) | payer BC ==
--- NOTE | 2019-08-13 21:57 | ER Document Report ---
ED Medical Screen (RME) - General Chief Complaint: Knee Injury Stated Complaint: KNEE/ELBOW INJURY Time Seen by Provider: 08/13/19 21:53 Mode of Arrival: Ambulatory Information source: Patient Notes: Patient presents to the emergency department with right knee pain. Reports he fell playing baseball felt a pop. Denies past medical history of injury to the knee. Also complains his right elbow is hurting but he did not fall on that. Reports he thinks he did not warm up good enough. Took 800 mg Motrin prior to arrival. No obvious injury noted no erythema no swelling no warmth to the knee or the elbow. Patient has full range of motion no obvious deformity. I have greeted and performed a rapid initial assessment of this patient. A comprehensive ED assessment and evaluation of the patient, analysis of test results and completion of the medical decision making process will be conducted by additional ED providers. Dictation of this chart was performed using voice recognition software; therefore, there may be some unintended grammatical errors. TRAVEL OUTSIDE OF THE [place] IN LAST 30 DAYS: No - Related Data Allergies/Adverse Reactions: No Known Allergies Allergy (Verified 07/17/18 21:33) Past Medical History - Past Medical History Cardiac Medical History: Reports: Hx Hypercholesterolemia, Hx Hypertension Pulmonary Medical History: Reports: Hx Asthma, Hx Pneumonia Renal/ Medical History: Denies: Hx Peritoneal Dialysis GI Medical History: Reports: Hx Gastroesophageal Reflux Disease Musculoskeltal Medical History: Reports Hx Arthritis Psychiatric Medical History: Reports: Hx Anxiety, Hx Depression - Immunizations Immunizations up to date: Yes Hx Diphtheria, Pertussis, Tetanus Vaccination: Yes History of Influenza Vaccine for 08/2017 - 01/2018 Season: Yes Physical Exam - Vital signs Vitals: Temp Pulse Resp BP Pulse Ox 97.9 F 96 20 137/72 H 95 08/13/19 21:43 08/13/19 21:43 08/13/19 21:43 08/13/19 21:43 08/13/19 21:43 Course - Vital Signs Vital signs: Temp Pulse Resp BP Pulse Ox 97.9 F 96 20 137/72 H 95 08/13/19 21:43 08/13/19 21:43 08/13/19 21:43 08/13/19 21:43 08/13/19 21:43
--- NOTE | 2019-08-13 22:40 | RADIOLOGY REPORT (SQ) ---
EXAM DESCRIPTION: RadLex: XR KNEE 4 OR MORE VIEWS Views: 4 CLINICAL HISTORY: 38 years Male, pain, fell playing baseball; pain below patella COMPARISON: None. FINDINGS: Negative for acute fracture, dislocation, or radiopaque foreign body. No joint effusion. Patellar tendon contours are normal. Hoffa's fat pad is clear. IMPRESSION: 1. No acute findings.
[2019-08-13] MEDS ORDERED: HYDROCODONE/ACETAMINOPHEN 5-325 MG (6 TAB/ER DISP) PO PRN (23:48)
--- NOTE | 2019-08-13 23:50 | ER Document Report ---
HPI - HPI Patient complains to provider of: Right knee injury Time Seen by Provider: 08/13/19 21:53 Onset: Just prior to arrival Onset/Duration: Sudden Quality of pain: Achy Pain Level: 3 Context: Patient states that he was playing baseball on third base and was running for a foul ball. Patient states he felt a sudden pop in his right knee. Patient is complaining of right knee pain since then. Patient denies any other injury. Associated Symptoms: Other - Right knee pain Exacerbated by: Standing, Movement, Walking Relieved by: Denies Similar symptoms previously: No Recently seen / treated by doctor: No - ROS ROS below otherwise negative: Yes Systems Reviewed and Negative: Yes All other systems reviewed and negative - NEURO Neurology: DENIES: Weakness - GASTROINTESTINAL Gastrointestinal: DENIES: Nausea - MUSCULOSKELETAL Musculoskeletal: REPORTS: Extremity pain, Swelling - DERM Skin Color: Normal Skin Problems: None Past Medical History - General Information source: Patient - Social History Smoking Status: Never Smoker Frequency of alcohol use: None Drug Abuse: None Occupation: EMS Lives with: Family Family History: Reviewed & Not Pertinent Patient has suicidal ideation: No Patient has homicidal ideation: No - Past Medical History Cardiac Medical History: Reports: Hx Hypercholesterolemia, Hx Hypertension Pulmonary Medical History: Reports: Hx Asthma, Hx Pneumonia Renal/ Medical History: Denies: Hx Peritoneal Dialysis GI Medical History: Reports: Hx Gastroesophageal Reflux Disease Musculoskeletal Medical History: Reports Hx Arthritis Psychiatric Medical History: Reports: Hx Anxiety, Hx Depression Past Surgical History: Reports: Hx Herniorrhaphy - Immunizations Immunizations up to date: Yes Hx Diphtheria, Pertussis, Tetanus Vaccination: Yes Vertical Provider Document - CONSTITUTIONAL Agree With Documented VS: Yes Exam Limitations: No Limitations General Appearance: WD/WN, No Apparent Distress - INFECTION CONTROL TRAVEL OUTSIDE OF THE [place] IN LAST 30 DAYS: No - HEENT HEENT: Atraumatic, Normocephalic - NECK Neck: Normal Inspection - RESPIRATORY Respiratory: No Respiratory Distress - CARDIOVASCULAR Pulses: Normal: Dorsalis pedis - MUSCULOSKELETAL/EXTREMETIES Musculoskeletal/Extremeties: MAEW, FROM, Tender - Right knee joint tenderness to compartment just inferior of patella. No joint effusion, no laxity with varus or valgus maneuvers. Patellar tendon intact. No tenderness to joint line.. negative: Eccymosis - NEURO Level of Consciousness: Awake, Alert, Appropriate Motor/Sensory: No Motor Deficit - DERM Integumentary: Warm, Dry, No Rash Course - Vital Signs Vital signs: Temp Pulse Resp BP Pulse Ox 97.9 F 96 20 137/72 H 95 08/13/19 21:43 08/13/19 21:43 08/13/19 21:43 08/13/19 21:43 08/13/19 21:43 - Diagnostic Test Radiology reviewed: Image reviewed, Reports reviewed Procedures - Immobilization Right Knee Pre-Proc Neuro Vasc Exam: Normal Immobilizer type: Knee immobilizer Performed by: PCT Post-Proc Neuro Vasc Exam: Normal Alignment checked and good: Yes Discharge - Discharge Clinical Impression: Right knee sprain Condition: Stable Disposition: HOME, SELF-CARE Instructions: Use of Crutches ([facility]), Ice & Elevation ([facility]), Suspected Internal Knee Injury ([facility]), Knee Immobilizing Splint ([facility]), Oral Narcotic Medication ([facility]), Sprained Knee ([facility]) Additional Instructions: Return immediately for any new or worsening symptoms Followup with your primary care provider, call tomorrow to make a followup appointment Follow up with orthopedics for any persistent pain or problems Forms: Return to Work Referrals: MARY VERONICA JR DO [ACTIVE PROVISIONAL STAFF] - Follow up as needed [facility] [Provider Group] - Follow up as needed
[2019-08-14 00:27] VITALS: BP 128/86
== END 2019-08-14 00:33 | disposition home or self-care (01) ==
LOC: ER 21:00
DX: S83.91XA Sprain of unspecified site of right knee, initial encounter (principal); M25.561 Pain in right knee; M79.89 Other specified soft tissue disorders; X58.XXXA Exposure to other specified factors, initial encounter; Y93.64 Activity, baseball; I10 Essential (primary) hypertension; J45.909 Unspecified asthma, uncomplicated
CPT/HCPCS: 99283; 73564; L1830

== ENCOUNTER 2019-12-27 20:36 | Emergency (ER) | payer BC ==
--- NOTE | 2019-12-27 21:20 | EKG REPORT ---
SEVERITY:- OTHERWISE NORMAL ECG - SINUS TACHYCARDIA : Confirmed by: Marisol Santiago MD 27-Dec-2019 21:19:54
[2019-12-27 21:29] LABS: ABSOLUTE BASOPHILS # (AUTO) 0.1 10^3/uL (0.0-0.2); ABSOLUTE EOSINOPHILS # (AUTO) 0.2 10^3/uL (0.0-0.6); ABSOLUTE LYMPHOCYTES (AUTO) 2.5 10^3/uL (0.5-4.7); ABSOLUTE MONOCYTES (AUTO) 0.6 10^3/uL (0.1-1.4); ABSOLUTE NEUT (AUTO) 5.3 10^3/uL (1.7-8.2); BASOPHILS % (AUTO) 1.6 % (0-2); EOSINOPHILS % (AUTO) 1.9 % (0-6); HEMATOCRIT 45.5 % (37.9-51.0); HEMOGLOBIN 16.1 g/dL (13.5-17.0); LYMPHOCYTES % (AUTO) 28.6 % (13-45); MEAN CORPUSCULAR HEMOGLOBIN 31.1 pg (27.0-33.4); MEAN CORPUSCULAR HGB CONC 35.4 g/dL (32.0-36.0); MEAN CORPUSCULAR VOLUME 88 fl (80-97); MONOCYTES % (AUTO) 6.6 % (3-13); PLATELET COUNT 280 10^3/uL (150-450); RED BLOOD COUNT 5.18 10^6/uL (4.35-5.55); RED CELL DISTRIBUTION WIDTH 13.3 % (11.5-14.0); SEGMENTED NEUTROPHILS % (AUTO) 61.3 % (42-78); TOTAL CELLS COUNTED % (AUTO) 100 %; WHITE BLOOD COUNT 8.7 10^3/uL (4.0-10.5)
[2019-12-27 21:45] LABS: ALBUMIN 4.3 g/dL (3.5-5.0); ALKALINE PHOSPHATASE 53 U/L (38-126); ANION GAP 9 (5-19); ASPARTATE AMINO TRANSFERASE 33 U/L (17-59); BILIRUBIN,TOTAL 1.1 mg/dL (0.2-1.3); BLOOD UREA NITROGEN 16 mg/dL (7-20); CALCIUM 9.6 mg/dL (8.4-10.2); CARBON DIOXIDE 28 mmol/L (22-30); CHLORIDE 99 mmol/L (98-107); CREATINE KINASE 72 U/L (55-170); GLUCOSE 177 mg/dL (75-110); POTASSIUM 4.2 mmol/L (3.6-5.0); TOTAL PROTEIN 7.2 g/dL (6.3-8.2)
--- NOTE | 2019-12-27 21:50 | RADIOLOGY REPORT (SQ) ---
EXAM DESCRIPTION: X-RAY CHEST TWO VIEWS CLINICAL HISTORY: 39 years Male CP COMPARISON: None TECHNIQUE: PA and lateral chest x-rays at 2138 hours on 12/27/2019. FINDINGS: EKG leads overlie the chest. The lungs are mildly hypoinflated and clear. The costophrenic sulci are sharp. The heart is normal in size with normal pulmonary vascularity. No acute bony abnormalities are seen. IMPRESSION: No active cardiopulmonary lesions.
[2019-12-27 21:57] LABS: CREATINE KINASE MB 1.23 ng/mL (<4.55); TROPONIN I < 0.012 ng/mL
--- NOTE | 2019-12-27 23:59 | ER Document Report ---
ED General - General Chief Complaint: Shortness Of Breath Stated Complaint: CHEST TIGHTNESS,COUGH Time Seen by Provider: 12/27/19 22:19 Primary Care Provider: JARRED ADORNO MD [Primary Care Provider] - Follow up as needed Mode of Arrival: Ambulatory Information source: Patient Notes: 39-year-old man presents to the emergency department with a complaint of chest tightness with right sided chest discomfort. He had been diagnosed with pneumonia and Dee and completed antibiotics and was doing well but over the past 2 days has been having increased shortness of breath episodes with associated tightness in his chest. He also notes some swelling in his ankles a nd feet and swelling in his fingers at times. He has sleep apnea and has been poorly compliant with his CPAP. He denies productive cough or wheezes. TRAVEL OUTSIDE OF THE [place] IN LAST 30 DAYS: No - Related Data Allergies/Adverse Reactions: No Known Allergies Allergy (Verified 07/17/18 21:33) Home Medications: benzipril (?), HCTZ Past Medical History - Social History Smoking Status: Never Smoker Frequency of alcohol use: Occasional Drug Abuse: None Family History: Reviewed & Not Pertinent Patient has suicidal ideation: No Patient has homicidal ideation: No - Past Medical History Cardiac Medical History: Reports: Hx Hypercholesterolemia, Hx Hypertension Pulmonary Medical History: Reports: Hx Asthma, Hx Pneumonia Renal/ Medical History: Denies: Hx Peritoneal Dialysis GI Medical History: Reports: Hx Gastroesophageal Reflux Disease Musculoskeletal Medical History: Reports Hx Arthritis Psychiatric Medical History: Reports: Hx Anxiety, Hx Depression Past Surgical History: Reports: Hx Herniorrhaphy - Immunizations Immunizations up to date: Yes Hx Diphtheria, Pertussis, Tetanus Vaccination: Yes Review of Systems - Review of Systems Notes: Constitutional: Negative for fever. HENT: Negative for sore throat. Eyes: Negative for visual changes. Cardiovascular: + Chest tightness Respiratory: + Shortness of breath. Gastrointestinal: Negative for abdominal pain, vomiting or diarrhea. Genitourinary: Negative for dysuria. Musculoskeletal: Negative for back pain. Skin: Negative for rash. Neurological: Negative for headaches, weakness or numbness. 10 point ROS negative except as marked above and in HPI. Physical Exam - Vital signs Vitals: Pulse Resp BP 106 H 20 149/91 H 12/27/19 21:00 12/27/19 21:00 12/27/19 21:00 - Notes Notes: PHYSICAL EXAMINATION: Physical Exam: General: Well-nourished well-developed 39-year-old man in no acute distress HEENT: NC/AT, pupils equal round and reactive to light, MM moist,nares clear, oropharynx clear Neck: supple, no adenopathy, no masses. Lungs: clear, no wheezing, no rales no rhonchi CVS: Regular rate and rhythm no murmur gallop or rub Abdomen: Soft active nontender, no masses, no hepatosplenomegaly Ext: No edema clubbing or cyanosis. Neuro: Alert and responsive, moving all 4 extremities on command, cranial nerves intact. Skin: Intact no open lesions, no rash PSYCH: Normal mood, normal affect. Course - Vital Signs Vital signs: Temp Pulse Resp BP Pulse Ox 98.5 F 106 H 20 149/91 H 96 12/27/19 21:08 12/27/19 21:08 12/27/19 21:08 12/27/19 21:08 12/27/19 22:00 - Laboratory Result Diagrams: 12/27/19 21:16 12/27/19 21:16 Laboratory results interpreted by me: 12/27/19 21:16 Sodium 136.1 L Glucose 177 H 12/28/19 01:34 I have reviewed laboratory data and used this information for the treatment decisions regarding the patient. - Diagnostic Test Radiology reviewed: Image reviewed, Reports reviewed - Chest x-ray: No acute infiltrate or effusion - EKG Interpretation by Me Rate: Tachycardia - Sinus tachycardia, rate 108, no ST or T wave abnormalities: Interpretation tachycardic otherwise normal EKG Discharge - Discharge Clinical Impression: Congestion of upper airway URI (upper respiratory infection) Qualifiers: URI type: unspecified URI Qualified Code(s): J06.9 - Acute upper respiratory infection, unspecified Condition: Good Disposition: HOME, SELF-CARE Instructions: Upper Respiratory Illness ([facility]) Additional Instructions: Use your inhaler as needed for wheezing or congestion Follow-up with your primary care doctor as needed, return to the emergency department if you become more short of breath or have worsening symptoms. Referrals: JARRED ADORNO MD [Primary Care Provider] - Follow up as needed
[2019-12-28] MEDS ORDERED: IPRATROPIUM/ALBUTEROL 0.5-2.5 MG/3 ML AMPUL NEB ONE (00:03)
[2019-12-28 01:42] VITALS: BP 129/92
== END 2019-12-28 02:08 | disposition home or self-care (01) ==
LOC: ER 20:36
DX: J06.9 Acute upper respiratory infection, unspecified (principal); R09.89 Other specified symptoms and signs involving the circulatory and respiratory systems; R06.02 Shortness of breath; R07.9 Chest pain, unspecified; R05 Cough; M79.89 Other specified soft tissue disorders; Z91.19 Patient's noncompliance with other medical treatment and regimen; I10 Essential (primary) hypertension; J45.909 Unspecified asthma, uncomplicated
CPT/HCPCS: 93005; 94640; 99285; 36415; 82553; 82550; 85025; 80053; 84484; 83880; 71046; 93010; J7620

== ENCOUNTER 2020-04-18 21:48 | Emergency (ER) | payer BC ==
--- NOTE | 2020-04-18 22:35 | ER Document Report ---
ED Medical Screen (RME) - General Chief Complaint: Abscess Stated Complaint: RIGHT ARM PROBLEM Time Seen by Provider: 04/18/20 22:31 Primary Care Provider: JARRED ADORNO MD [Primary Care Provider] - Follow up as needed Mode of Arrival: Ambulatory Information source: Patient Notes: Patient is a 39-year-old male comes emergency room complaining of abscess on his right anterior upper arm for 2 weeks and one on his left posterior back for a few days. Patient does state that he attempted to pop it on his own but has not gotten any better. 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 He has had a history of these in the past but only most recent past. Patient denies any medical problems. Physical exam: Patient is well-nourished well-developed 3-year-old male who is no apparent distress on physical exam night. Lungs: Auscultation patient's lungs show bilateral breath sounds breath sounds increased clear to auscultation. Cardiac: Regular rate and rhythm without murmurs. Skin: Patient has an area on his upper anterior right arm that is approximately 2 and half centimeters by 1 cm at its mass. And there is a proximately 8 cm surrounding erythematous cellulitis. Main portion of it is mildly fluctuant and somewhat hard as well. There is a centralized pustule in the middle. Further investigation of the left side of his back shows noted to be a 1 x 1 cm mildly erythematous area that is slightly fluctuant. I have greeted and performed a rapid initial assessment of this patient. A comprehensive ED assessment evaluation of the patient, analysis and test results and completion of the medical decision-making process will be conducted by an additional ED provider. TRAVEL OUTSIDE OF THE [place] IN LAST 30 DAYS: No - HPI Onset: - 2 weeks - Related Data Allergies/Adverse Reactions: No Known Allergies Allergy (Verified 04/18/20 22:25) Past Medical History - Social History Frequency of alcohol use: Occasional Drug Abuse: None - Past Medical History Cardiac Medical History: Reports: Hx Hypercholesterolemia, Hx Hypertension Pulmonary Medical History: Reports: Hx Asthma, Hx Pneumonia Renal/ Medical History: Denies: Hx Peritoneal Dialysis GI Medical History: Reports: Hx Gastroesophageal Reflux Disease Musculoskeltal Medical History: Reports Hx Arthritis Psychiatric Medical History: Reports: Hx Anxiety, Hx Depression Past Surgical History: Reports: Hx Herniorrhaphy - Immunizations Immunizations up to date: Yes Hx Diphtheria, Pertussis, Tetanus Vaccination: Yes Physical Exam - Vital signs Vitals: Temp Pulse Resp BP Pulse Ox 98.0 F 102 H 15 127/78 H 97 04/18/20 21:51 04/18/20 21:51 04/18/20 21:51 04/18/20 21:51 04/18/20 21:51 Course - Vital Signs Vital signs: Temp Pulse Resp BP Pulse Ox 98 F 102 H 15 127/78 H 97 04/18/20 22:25 04/18/20 21:51 04/18/20 21:51 04/18/20 21:51 04/18/20 21:51 Doctor's Discharge - Discharge Referrals: JARRED ADORNO MD [Primary Care Provider] - Follow up as needed
[2020-04-19] MEDS ORDERED: LIDOCAINE 1%/EPINEPHRINE INJ 20 ML VIAL INJ ONE (01:10)
[2020-04-19] MEDS ORDERED: CEPHALEXIN 500 MG CAPSULE PO ONE (02:09)
[2020-04-19] MEDS ORDERED: SULFAMETHOXAZOLE/TRIMETHOPRIM 800-160 MG TABLET PO ONE (02:09)
[2020-04-19 02:17] VITALS: BP 133/88
--- NOTE | 2020-04-19 02:17 | ER Document Report ---
ED General - General Chief Complaint: Abscess Stated Complaint: RIGHT ARM PROBLEM Time Seen by Provider: 04/18/20 22:31 Primary Care Provider: AJRRED ADORNO MD [Primary Care Provider] - Follow up as needed Mode of Arrival: Ambulatory TRAVEL OUTSIDE OF THE [place] IN LAST 30 DAYS: No - HPI Notes: 39-year-old male history of hypertension presents with approximately 2 weeks of worsening area of redness swelling and tenderness on proximal medial surface of right arm without associated symptoms. Patient has a similar area proximal left arm but smaller with minimal pain. Denies any fever, nausea/vomiting, prior episodes, recent antibiotics, immune compromise diabetes, HIV - Related Data Allergies/Adverse Reactions: No Known Allergies Allergy (Verified 04/18/20 22:25) Past Medical History - General Information source: Patient - Social History Smoking Status: Former Smoker Frequency of alcohol use: Occasional Drug Abuse: None Family History: Reviewed & Not Pertinent Patient has homicidal ideation: No - Past Medical History Cardiac Medical History: Reports: Hx Hypercholesterolemia, Hx Hypertension Pulmonary Medical History: Reports: Hx Asthma, Hx Pneumonia Renal/ Medical History: Denies: Hx Peritoneal Dialysis GI Medical History: Reports: Hx Gastroesophageal Reflux Disease Musculoskeletal Medical History: Reports Hx Arthritis Psychiatric Medical History: Reports: Hx Anxiety, Hx Depression Past Surgical History: Reports: Hx Herniorrhaphy - Immunizations Immunizations up to date: Yes Hx Diphtheria, Pertussis, Tetanus Vaccination: Yes Review of Systems - Review of Systems Notes: REVIEW OF SYSTEMS: CONSTITUTIONAL : Denies fever, chills, or sweats. EENT: Denies recent cold/sinus symptoms, denies throat pain CARDIOVASCULAR: Denies chest pain, LAUREN RESPIRATORY: Denies cough, denies shortness of breath. GASTROINTESTINAL: Denies abdominal pain, nausea/vomiting. GENITOURINARY: Denies difficulty urinating, painful urination. MUSCULOSKELETAL: Denies neck pain, back pain. SKIN: + rash +skin lesions. HEMATOLOGIC : Denies easy bruising or bleeding. LYMPHATIC: Denies swollen, enlarged glands. NEUROLOGICAL: Denies headache, denies change in gait. PSYCHIATRIC: Denies anxiety or stress or depression. Physical Exam - Vital signs Vitals: Temp Pulse Resp BP Pulse Ox 98.0 F 102 H 15 127/78 H 97 04/18/20 21:51 04/18/20 21:51 04/18/20 21:51 04/18/20 21:51 04/18/20 21:51 - Notes Notes: PHYSICAL EXAMINATION: GENERAL: Well-appearing, well-nourished and in no acute distress. HEAD: Atraumatic, normocephalic. EYES: Pupils equal round and appropriate constriction, sclera anicteric, conjunctiva are normal. ENT: nares patent, moist mucous membranes. NECK: Normal range of motion, supple without lymphadenopathy LUNGS: Normal respiratory rate and effort, speaking in full sentences HEART: Regular rate, no JVD, no lower extremity edema ABDOMEN: Soft, nontender EXTREMITIES: Normal range of motion, no pitting or edema. No cyanosis. NEUROLOGICAL: Awake, alert, conversing appropriately, moves all extremities spontaneously. PSYCH: Normal mood, normal affect. SKIN: Warm, Dry, normal turgor, proximal medial right upper arm with area of 5 x 5 cm of erythema and warmth with central area of fluctuance. Left proximal arm approximately 2 x 2 centimeter area of erythema and warmth without any fluctuance Course - Re-evaluation Re-evalutation: 04/19/20 02:19 Small area of cellulitis surrounding an abscess on the right proximal arm. I&D without complication. Left arm with small area of likely developing abscess but no collection suitable for I&D currently. First dose of antibiotics given in ED, patient ready for discharge with outpatient course of p.o. antibiotics, heart rate initially mildly elevated during triage vitals likely secondary to immediate exertion prior to taking vitals, resolved without any intervention at time of my exam, and normal heart rate on repeat vitals. Patient given extensive return to ED precautions which he demonstrated understanding of. - Vital Signs Vital signs: Temp Pulse Resp BP Pulse Ox 98 F 102 H 15 127/78 H 97 04/18/20 22:25 04/18/20 21:51 04/18/20 21:51 04/18/20 21:51 04/18/20 21:51 Procedures - Incision and Drainage Right Medial Arm Time completed: 02:00 Anesthetic type: 1% Lidocaine w/epi mL's of anesthetic: 4 Incision Method: Incision made with needle Amount/type of drainage: 5 ml Notes: 04/19/20 02:00 Blunt dissection performed to break up loculations. Discharge - Discharge Clinical Impression: Abscess Cellulitis Qualifiers: Site of cellulitis: extremity Site of cellulitis of extremity: upper extremity Laterality: right Qualified Code(s): L03.113 - Cellulitis of right upper limb Condition: Good Disposition: HOME, SELF-CARE Instructions: Cephalexin ([facility]), Trimethoprim-Sulfa ([facility]) Additional Instructions: Abscess You have an abscess (boil). This a pus-forming infection, usually due to staph. Some boils may be left to drain on their own, but most require lancing. From the time the tender lump first appears, it may be three or four days before the abscess is ready to navin. Local heat and rest help at this stage of treatment. An antibiotic may prevent spread of the infection. Once the abscess is opened, packing may be placed into it. This is done so pus is not sealed inside by premature closure of the cavity. The packing will be removed at your follow-up visit or you may be advised to remove it yourself at home. Sometimes this packing must be replaced a few times during healing. The wound will heal with surprisingly little scar. Depending on the size and location of an abscess, healing can take one to four weeks. You may shower and wash the area around the incision site two or three times a day. Antibiotics may be prescribed, but are usually not necessary after an abscess has been drained. If you develop fever, chilling, worsening pain, or increasing swelling in the area, call the doctor or return immediately. Cellulitis You have an infection of your skin and underlying soft tissues called cellulitis. This is due to bacteria, which can enter through any break in the skin, or even through an irritated hair follicle. Untreated, cellulitis will usually worsen. Antibiotics are required. Usually, warm packs or warm soaks, and elevation of the infected area are recommended. You should start getting better within 24 to 36 hours. Most infections respond quickly to the right medication. Follow-up care is important, however, to check for abscess (boil) formation, unsuspected foreign body, or resistant infection. If you develop fever, chills, or if the area of infection is becoming rapidly more swollen or painful, call the doctor at once. Prescriptions: Sulfamethoxazole/Trimethoprim [Bactrim Ds Tablet] 1 each PO BID #10 tablet Cephalexin Monohydrate [Keflex 500 mg Capsule] 500 mg PO Q6H 5 Days #20 capsule Referrals: JARRED ADORNO MD [Primary Care Provider] - Follow up as needed
== END 2020-04-19 02:26 | disposition home or self-care (01) ==
LOC: ER 21:48
DX: L02.413 Cutaneous abscess of right upper limb (principal); L03.113 Cellulitis of right upper limb; I10 Essential (primary) hypertension; J45.909 Unspecified asthma, uncomplicated; Z87.891 Personal history of nicotine dependence
CPT/HCPCS: 99283; 10060; J3490